=== PATIENT | female | born 1990 | race Caucasian/White ===

== ENCOUNTER 2017-01-05 13:52 | Emergency (ER) | payer OTHER ==
--- NOTE | 2017-01-05 17:32 | ED CLINICAL REPORT ---
Clinical Report - Physicians/Mid Levels [facility] [address] [place] [address] 01/05/2017 13:56 Patient: [facility]AL SMALLWOOD [id number] Time Seen: 14:30 Jan 05 2017. Arrived- By private vehicle. Historian- family (SO, son). HISTORY OF PRESENT ILLNESS Chief Complaint: VOMITING. This started today and is still present. No recent travel. She has had nausea and vomiting. No flank pain or history of possible bad food exposure. Has not recently been camping or on antibiotics. The illness is described as mild. (, prior vag delivery with no complications reports n/v over last few days worse with food, pt has no pain, reports she has an appetite. Denies abx use. Denies flank pain. Denies vag bleeding, loss of fluid. Denies any recent illness.). REVIEW OF SYSTEMS Last normal menstrual period- Nov 16. No fever or difficulty with urination. Currently . All systems otherwise negative, except as recorded above. PAST HISTORY Problems: UTI - Urinary Tract Infection. . Vomiting. Immunizations. LNMP - Last Normal Menstrual Period. Gastroenteritis [RuleOut]. Additional Surgeries: Tonsillectomy. Allergies: No Known Drug Allergy. SOCIAL HISTORY Never smoker. No alcohol use or drug use. ADDITIONAL NOTES The nursing notes have been reviewed. PHYSICAL EXAM Vital Signs: 01/05/2017 14:24 BP: 123/77. HR: 84. RR: 16. O2 saturation: 100%. Temp: 98.2 F. Pain level now: 0/10. Appearance: Alert. Eyes: Eyes normal inspection. ENT: Ears normal. Neck: Normal inspection. CVS: Normal heart rate and rhythm. Heart sounds normal. Respiratory: No respiratory distress. Breath sounds normal. No decreased air movement. Abdomen: Soft and nontender. Bowel sounds normal. No abdominal tenderness. Back: Normal inspection. No CVA tenderness. Skin: Skin warm. Normal skin color. Neuro: Oriented X 3. LABS, X-RAYS, AND EKG Laboratory Tests: CBC w Diff: (LUCIE: 01/05/2017 14:35) ( MsgRcvd 01/05/2017 14:50) Final results Test Result Flag Units (Reference) WHITE BLOOD COUNT 12.8 H K/uL (4.5-11.5) RED BLOOD COUNT 4.67 M/uL (4.00-5.20) HEMOGLOBIN 14.1 gm/dL (12.0-16.0) HEMATOCRIT 42.5 % (36.0-46.0) MEAN CELL VOLUME 91 fL (80-100) MEAN CORPUSCULAR HGB 30 pg (26-34) MEAN CORPUSCULAR HGB CONC 33 g/dL (31-37) RED CELL DISTRIBUTION WIDTH 13.1 % (11.6-14.8) PLATELET COUNT 265 K/uL (150-400) NEUTROPHIL % 76.9 H % (50-75) LYMPH % 17.5 L % (25-40) MONO % 5.1 % (3-14) EOSINOPHIL % 0.3 % (0-4) BASOPHIL % 0.2 % (0-2) . PROGRESS AND PROCEDURES Course of Care: Patient here and they are very stable. No distress. No emesis. She has an appetite. Able to tolerate by mouth well. Patient with history of emesis previously. To follow up outpatient. No vaginal bleeding. Abdomen is soft and nontender. 01/05/2017 15:55 BP: 109/67. HR: 91. RR: 16. O2 saturation: 100%. Temp: 99.3 F. Pain level now: 0/10. Patient is stable. Physical exam findings are improved. Symptoms better. Patient/family counseled. Disposition: Discharged. CLINICAL IMPRESSION Hyperemesis gravidarum less than 21 weeks. INSTRUCTIONS Drink plenty of fluids. Warnings: Further evaluation is necessary. Prescription Medications: Zofran (orally disintegrating tablets) 4 mg: take 1 orally every 8 hours for 3 days as needed for nausea. Dispense fifteen (15). No refill. Reglan 10 mg tablets: take 1 orally every 12 hours for 5 days as needed for nausea or vomiting. Dispense ten (10). No refills. Substitution is permissible. (Electronically signed by Kassie Ovalles P.A.-C 01/05/2017 17:32)
--- NOTE | 2017-01-05 17:32 | ED MED RECONCILIATION SUMMARY ---
Patient: JAMAAL SMALLWOOD Medication Reconciliation Report [facility] VisitID: [id number] [place] [address] 26y, F Registration Date/Time: 01/05/2017 Weight: 51.2 kg Height/Length: 108 in. BMI: 6.8 ALLERGIES: No Known Drug Allergy The patient's Home Medications are listed below: Not obtained. The source(s) of the original Home Medication information: Not obtained. The following Medications were given to the patient in the Emergency Department: IV NS IV Fluids bolus 0, then 1000 mL/hr, administered: 01/05/2017 2:42:00 PM Zofran [IVP] IVP 4 mg, administered: 01/05/2017 2:42:00 PM The following Medications were prescribed to the patient: Zofran (orally disintegrating tablets) 4 mg: take 1 orally every 8 hours for 3 days as needed for nausea. Dispense fifteen (15). No refill. -- Kassie Ovalles P.AJunior Reglan 10 mg tablets: take 1 orally every 12 hours for 5 days as needed for nausea or vomiting. Dispense ten (10). No refills. Substitution is permissible. -- Kassie Ovalles P.AJunior
--- NOTE | 2017-01-05 17:32 | ED ORDER SUMMARY ---
..... Patient: JAMAAL SMALLWOOD OrderSheet [facility] VisitID: [id number] [place] [address] 26y, F Registration Date/Time: 01/05/2017 ORDER SHEET Weight: 51.2 kg (measured) Allergies: No Known Drug Allergy GENERAL ORDERS: CBC w Diff Urgent (14:29 01/05/2017 Pooja P.A.-C) (Ack 14:36 TBergley) (15:31 TBergley) MEDICATION ORDERS: IV FLUIDS: IV NS : initial bolus 1000 mL (1000 mL/hr), then 1000 mL/hr for X1 (NOW); Karl (14:01/05/2017 Pooja Joshua.A.-C) (Ack 14:29 TChapman R.N.) (14:42 TChapman R.N.) Zofran IV 4 mg (NOW) (14:29 01/05/2017 Pooja Joshua.A.-C) (Ack 14:29 TChapman R.N.) (14:42 TChapman R.N.) ORDER SHEET NOTES: [Electronically signed by Carolina Mitchell R.N. (16:02 01/05/2017)] [Electronically signed by Kassie Ovalles P.A.-C (17:32 01/05/2017)] [Electronically locked/signed by Carolina Mitchell R.N. (16:02 01/05/2017)]
--- NOTE | 2017-01-05 17:32 | ED DISCHARGE INSTRUCTIONS ---
Patient: JAMAAL SMALLWOOD General Instructions [facility] VisitID: [id number] [place] [address] 26y, F Registration Date/Time: 01/05/2017 Hyperemesis gravidarum less than 21 weeks. INSTRUCTIONS Drink plenty of fluids. Warnings: Further evaluation is necessary. Prescription Medications: Zofran (orally disintegrating tablets) 4 mg: take 1 orally every 8 hours for 3 days as needed for nausea. Dispense fifteen (15). No refill. Reglan 10 mg tablets: take 1 orally every 12 hours for 5 days as needed for nausea or vomiting. Dispense ten (10). No refills. Substitution is permissible. ADDITIONAL INFORMATION Hyperemesis Of Hyperemesis of is a severe form of "morning sickness", where the vomiting is excessive and may cause dehydration and chemical imbalances in the body. It occurs in about 1% of pregnancies, and is usually worse during the 10-12th week of . It gets better by the 16th week. Its cause is not well understood, but may be related to rising hormone levels early in the . It can be a serious threat to mother and fetus if dehydration becomes severe. Therefore, follow the advice below carefully. If symptoms are severe and not controlled by home measures, intravenous fluids and admission to the hospital may be needed. Home Care: 1) Activity a. After awakening from sleep, remain in bed for 15 minutes before getting up. 2) Diet a. Eat frequent small meals rather than 3 large meals. b. A diet high in carbohydrates (starches) and fiber is best. Avoid greasy or spicy foods. c. If you are having trouble keeping down solid foods, drink frequent, small amounts of liquids with electrolytes, such as broth or sports drinks. If nausea and vomiting continue, rest your stomach by waiting 1-2 hours before trying to drink again. d. Keep a log of the foods you eat and how they affect your symptoms. Avoid foods that trigger your symptoms. e. Keep Saltine crackers at the bedside. If you are nauseated upon awakening, eat some crackers or dry toast before getting out of bed. 3) Medicine a. In general, it is best to avoid strong medicines during , especially during the first three months. The effect on the growing baby is not always known and these could cause harm. Your doctor will recommend a prescription medicine only when the symptoms you are having (vomiting and dehydration) are more dangerous to the baby than the small risk of using the medicine. b. Taking Vitamin B6 (pyridoxine), 10-25 mg daily is safe and may be helpful to reduce nausea. c. Check with your doctor before taking any other ariw-lge-igxhkrc or herbal medicines during your . Follow Up: With your doctor within the next few days or as instructed by this facility. Get Prompt Medical Attention if any of the following occur: -- Unable to keep any clear liquids down over a six-hour period -- Worsening weakness, dizziness or fainting occurs -- No weight gain over a two-week period -- Severe constant lower right abdominal pain -- Fever, chills or frequent diarrhea Redwood Diet A bland diet is used for patients with an upset stomach. It consists of foods that are mild and easy to digest. It is better to eat small frequent meals rather than three large meals a day. BEVERAGES OK: Fruit juices, non-caffeinated teas and coffee, non-carbonated valdez AVOID: Carbonated beverage, caffeinated tea and coffee, all alcoholic beverages BREAD OK: Refined white, wheat or rye bread, gem or soda crackers, [place] toast, plain rolls, bagels AVOID: Whole-grain bread CEREAL OK: Refined cereals: cooked or ready to eat AVOID: Whole grain cereals and granola, or those containing bran, seeds or nuts DESSERTS OK: Peanut butter and all others except those to "avoid" AVOID: Chocolate, cocoa, coconut, popcorn, nuts, seeds, jam, marmalade FRUITS OK: Canned, cooked, frozen or fresh fruits without seeds or tough skin AVOID: Olives, skin and seeds of fruit MEATS OK: All fresh or preserved meat, fish and fowl AVOID: Any that are prepared with those spices to "avoid" CHEESE & EGGS OK: Eggs, cottage cheese, cream cheese, other cheeses AVOID: All cheeses made with those spices to "avoid" POTATOES & PASTA OK: Potato, rice, macaroni, noodles, spaghetti AVOID: None SOUPS OK: All soups without heavy seasoning AVOID: Soups made with those spices to "avoid" VEGETABLES OK: Canned, cooked, fresh or frozen mildly flavored vegetables without seeds, skins or coarse fiber AVOID: Vegetables prepared with those spices to "avoid"; skin and seeds of vegetables and those with coarse fiber SPICES OK: Salt, lemon and [place] juice, vinegar, all extracts, daina, cinnamon, thyme, mace, allspice, paprika AVOID: Wilbraham powder, cloves, pepper, seed spices, garlic, gravy pickles, highly seasoned salad dressings Clear Liquid Diet Clear liquids are any liquid that you can see through as well as those that are very easy to digest. This is used while the body is recovering from irritation or infection of the stomach or intestinal tract. It may also be used before special procedures or surgery. This diet is to be used no more than three days. You may include the following items. Adults Adults should drink a total of 23 quarts of liquid per day. It may be easier to drink small frequent servings rather than a few large ones. Liquids can include: Fruit juices.Strained orange juice or lemonade (no pulp), apple, grape and cranberry juice, clear fruit drinks, sports drinks Beverages.Sport drinks, sodas, mineral water (plain or flavored), tea, black coffee, liquid gelatin (add twice the recommended amount of water) Soups.Clear broth, consomm, bouillon Desserts.Plain gelatin, popsicles, fruit juice bars Children Over 2 years old The following liquids are acceptable for children over age 2: Fruit juices.Strained orange juice or lemonade (no pulp), apple, grape and cranberry juice, clear fruit drinks Beverages. Sports drinks, sodas, mineral water (plain or flavored), tea, liquid gelatin (add twice the recommended amount of water) Soups. Clear broth, consomm, bouillon Desserts. Plain gelatin, popsicles, fruit juice bars Children under 2 years old Oral rehydration fluids such are available at drug stores and most grocery stores without a prescription. You have been given the following additional information: Hyperemesis Gravidarum Diet, Redwood (Adult) Diet, Clear Liquid (Electronically signed by Kassie Ovalles P.A.-C 01/05/2017 17:32)
--- NOTE | 2017-01-05 17:32 | ED MED RECONCILIATION SUMMARY ---
Patient: JAMAAL SMALLWOOD Medication Reconciliation Report [facility] VisitID: [id number] [place] [address] 26y, F Registration Date/Time: 01/05/2017 Weight: 51.2 kg Height/Length: 108 in. BMI: 6.8 ALLERGIES: No Known Drug Allergy The patient's Home Medications are listed below: Not obtained. The source(s) of the original Home Medication information: Not obtained. The following Medications were given to the patient in the Emergency Department: IV NS IV Fluids bolus 0, then 1000 mL/hr, administered: 01/05/2017 2:42:00 PM Zofran [IVP] IVP 4 mg, administered: 01/05/2017 2:42:00 PM The following Medications were prescribed to the patient: Zofran (orally disintegrating tablets) 4 mg: take 1 orally every 8 hours for 3 days as needed for nausea. Dispense fifteen (15). No refill. -- Kassie Ovalles P.AJunior Reglan 10 mg tablets: take 1 orally every 12 hours for 5 days as needed for nausea or vomiting. Dispense ten (10). No refills. Substitution is permissible. -- Kassie Ovalles P.AJunior
--- NOTE | 2017-01-05 17:32 | ED NURSING NOTES ---
Clinical Report - Nurses [facility] [address] [place] [address] 01/05/2017 13:56 [id number] TRIAGE Triage time 14:24. Acuity: LEVEL 4. Chief Complaint: NAUSEA and VOMITING. --14:27 Carolina Mitchell R.N. 14:24 01/05/17. BP: 123/77. HR: 84. RR: 16. O2 saturation: 100%. Temp: 98.2 F. Pain level now: 0/10. --14:27 Carolina Mitchell R.N. Weight: 51.2 kg measured. Height/Length: 108 inches Per Patient. BMI: 6.8. --14:23 Carolina Mitchell R.N. Allergies No Known Drug Allergy. --14:25 Carolina Mitchell R.N. History Arrived by private vehicle. Historian: patient. Accompanied by family. ( nausea and vomiting started last week. Patient is about 13 weeks . Patient prescribed Zofran which is not helping). She has had nausea and vomiting. 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 PAST MEDICAL HX: Currently . confirmed with home test. Has had care by group social worker. SOCIAL HX: No alcohol use or drug use. No recent travel. No known contact with a sick individual. FALL RISK ASSESSMENT: Fall risk assessment completed. No fall risk identified. NUTRITIONAL RISK ASSESSMENT: The nutritional risk assessment revealed no deficiencies. FUNCTIONAL ASSESSMENT: Functional assessment: no impairments noted. LEARNING NEEDS ASSESSMENT: The learning needs assessment revealed no barriers. SKIN INTEGRITY ASSESSMENT: Skin integrity risk assessment completed. No skin integrity risk identified. --14:27 Carolina Mitchell R.N. PROBLEMS: . Vomiting. --14:26 Carolina Mitchell R.N. ADDITIONAL SURGERIES: Tonsillectomy. --14:26 Carolina Mitchell R.N. Interventions ID band on patient. To treatment room. --14:27 Carolina Mitchell R.N. PHYSICAL ASSESSMENT 14:46 01/05/17. Ambulatory to room. Patient gowned. GENERAL / NEURO / PSYCH: Alert. Oriented X 4. Appears in no acute distress. HEENT: Mucous membranes are pink. RESPIRATORY: Respirations not labored. Breath sounds within normal limits. CVS: Capillary refill less than 2 seconds. GI / : The patient has had constant nausea. Emesis noted. Has vomited numerous times. Abdomen soft and nontender. Bowel sounds within normal limits. No diarrhea. No urethral discharge or vaginal discharge. SKIN: Skin is warm. --14:46 Carolina Mitchell R.N. NURSING PROGRESS NOTES 14:37 01/05/2017 Site #1 started via IV in the right antecubital space with an 22g angiocath, with good blood return; one attempt. Blood drawn: rainbow set. Saline lock flushed with 5 mL saline. --14:42 Carolina Mitchell R.N. 14:42 01/05/2017 Started bag #1 1000 mL IV Fluids IV NS (Saline); at 1000 mL/hr via site #1 via dial-a-flow. Allergies verified and confirmed 5 rights. IV patency established. IV site checked: no pain, redness, or swelling. IV flushed thoroughly pre- and post-medication administration. --14:42 Carolina Mitchell R.N. 14:42 01/05/2017 Zofran (Ondansetron HCl) IVP 4 mg given. via site #1. Allergies verified and confirmed 5 rights. IV patency established. IVP given by RN. --14:42 Carolina Mitchell R.N. 14:48 01/05/17. The initial plan of care for this patient includes an assessment with efforts to address impairment of the gastrointestinal system; hydration needs. This plan of care was discussed with the patient. Blood samples drawn. Patient gowned. Two patient identifiers checked. Call light placed in reach. Side rails up x 1. Bed placed in lowest position. Brakes of bed on. Patient ready for evaluation- UTILITY PORTER notified. --14:48 Carolina Mitchell R.N. 15:31 01/05/17. BP: 109/60. HR: 78. RR: 16. O2 saturation: 100%. Temp: 98.6 F. Pain level now: 0/10. --15:32 Carolina Mitchell R.N. ( patient given Jell-O, crackers and lemon kaw soda. Will re check her status in 15 min). --15:32 Carolina Mitchell R.N. 15:51 01/05/2017 IV Fluids IV NS Discontinued: bag #1 infused. Total amount infused: 1000 mL. IV patency established. IV site checked: no pain, redness, or swelling. IV flushed thoroughly. --16:01 Carolina Mitchell R.N. 15:56 01/05/2017 Site #1 removed upon discharge. Bandaid applied. --16:01 Carolina Mitchell R.N. DISPOSITION / DISCHARGE 15:59 01/05/17. Condition at departure: improved. The goals identified in the patient's plan of care were met. No learning barriers present. Discharge instructions provided and reviewed with the patient. Reviewed medication(s) (zofran and reglan). Reviewed clear liquid diet and need for increased fluid intake. Patient verbalized understanding. Written instructions provided in Mauritian. The patient was discharged by the nurse practitioner. She was discharged home and accompanied by spouse. She left the Emergency Department ambulatory and via private vehicle. Spouse driving. --15:59 Carolina Mitchell R.N. 15:55 01/05/17. BP: 109/67. HR: 91. RR: 16. O2 saturation: 100%. Temp: 99.3 F. Pain level now: 0/10. --15:59 Carolina Mitchell R.N. Departure time: 1600. --15:59 Carolina Mitchell R.N. Locked/Released at 01/05/2017 16:02 by Carolina Mitchell R.N.
--- NOTE | 2017-01-05 17:32 | ED NURSING NOTES ---
Clinical Report - Nurses [facility] [address] [place] [address] 01/05/2017 13:56 [id number] TRI[facility] Triage time 14:24. Acuity: LEVEL 4. Chief Complaint: NAUSEA and VOMITING. --14:27 Carolina Mitchell R.N. 14:24 01/05/17. BP: 123/77. HR: 84. RR: 16. O2 saturation: 100%. Temp: 98.2 F. Pain level now: 0/10. --14:27 Carolina Mitchell R.N. Weight: 51.2 kg measured. Height/Length: 108 inches Per Patient. BMI: 6.8. --14:23 Carolina Mitchell R.N. Allergies No Known Drug Allergy. --14:25 Carolina Mitchell R.N. History Arrived by private vehicle. Historian: patient. Accompanied by family. ( nausea and vomiting started last week. Patient is about 13 weeks . Patient prescribed Zofran which is not helping). She has had nausea and vomiting. 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 PAST MEDICAL HX: Currently . confirmed with home test. 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 SOCIAL HX: No alcohol use or drug use. No recent travel. No known contact with a sick individual. FALL RISK ASSESSMENT: Fall risk assessment completed. No fall risk identified. NUTRITIONAL RISK ASSESSMENT: The nutritional risk assessment revealed no deficiencies. FUNCTIONAL ASSESSMENT: Functional assessment: no impairments noted. LEARNING NEEDS ASSESSMENT: The learning needs assessment revealed no barriers. SKIN INTEGRITY ASSESSMENT: Skin integrity risk assessment completed. No skin integrity risk identified. --14:27 Carolina Mitchell R.N. PROBLEMS: . Vomiting. --14:26 Carolina Mitchell R.N. ADDITIONAL SURGERIES: Tonsillectomy. --14:26 Carolina Mitchell R.N. Interventions ID band on patient. To treatment room. --14:27 Carolina Mitchell R.N. PHYSICAL ASSESSMENT 14:46 01/05/17. Ambulatory to room. Patient gowned. GENERAL / NEURO / PSYCH: Alert. Oriented X 4. Appears in no acute distress. HEENT: Mucous membranes are pink. RESPIRATORY: Respirations not labored. Breath sounds within normal limits. CVS: Capillary refill less than 2 seconds. GI / : The patient has had constant nausea. Emesis noted. Has vomited numerous times. Abdomen soft and nontender. Bowel sounds within normal limits. No diarrhea. No urethral discharge or vaginal discharge. SKIN: Skin is warm. --14:46 Carolina Mitchell R.N. NURSING PROGRESS NOTES 14:37 01/05/2017 Site #1 started via IV in the right antecubital space with an 22g angiocath, with good blood return; one attempt. Blood drawn: rainbow set. Saline lock flushed with 5 mL saline. --14:42 Carolina Mitchell R.N. 14:42 01/05/2017 Started bag #1 1000 mL IV Fluids IV NS (Saline); at 1000 mL/hr via site #1 via dial-a-flow. Allergies verified and confirmed 5 rights. IV patency established. IV site checked: no pain, redness, or swelling. IV flushed thoroughly pre- and post-medication administration. --14:42 Carolina Mitchell R.N. 14:42 01/05/2017 Zofran (Ondansetron HCl) IVP 4 mg given. via site #1. Allergies verified and confirmed 5 rights. IV patency established. IVP given by RN. --14:42 Carolina Mitchell R.N. 14:48 01/05/17. The initial plan of care for this patient includes an assessment with efforts to address impairment of the gastrointestinal system; hydration needs. This plan of care was discussed with the patient. Blood samples drawn. Patient gowned. Two patient identifiers checked. Call light placed in reach. Side rails up x 1. Bed placed in lowest position. Brakes of bed on. Patient ready for evaluation- MICA PATCHER notified. --14:48 Carolina Mitchell R.N. 15:31 01/05/17. BP: 109/60. HR: 78. RR: 16. O2 saturation: 100%. Temp: 98.6 F. Pain level now: 0/10. --15:32 Carolina Mitchell R.N. ( patient given Jell-O, crackers and lemon [place] soda. Will re check her status in 15 min). --15:32 Carolina Mitchell R.N. 15:51 01/05/2017 IV Fluids IV NS Discontinued: bag #1 infused. Total amount infused: 1000 mL. IV patency established. IV site checked: no pain, redness, or swelling. IV flushed thoroughly. --16:01 Carolina Mitchell R.N. 15:56 01/05/2017 Site #1 removed upon discharge. Bandaid applied. --16:01 Carolina Mitchell R.N. DISPOSITION / DISCHARGE 15:59 01/05/17. Condition at departure: improved. The goals identified in the patient's plan of care were met. No learning barriers present. Discharge instructions provided and reviewed with the patient. Reviewed medication(s) (zofran and reglan). Reviewed clear liquid diet and need for increased fluid intake. Patient verbalized understanding. Written instructions provided in Malaysian. The patient was discharged by the nurse practitioner. She was discharged home and accompanied by spouse. She left the Emergency Department ambulatory and via private vehicle. Spouse driving. --15:59 Carolina Mitchell R.N. 15:55 01/05/17. BP: 109/67. HR: 91. RR: 16. O2 saturation: 100%. Temp: 99.3 F. Pain level now: 0/10. --15:59 Carolina Mitchell R.N. Departure time: 1600. --15:59 Carolina Mitchell R.N. Locked/Released at 01/05/2017 16:02 by Carolina Mitchell R.N.
--- NOTE | 2017-01-05 17:32 | ED MAR SUMMARY ---
..... Medication Administration Record [facility] [address] [place] [address] Patient: JAMAAL SMALLWOOD Visit ID: [id number] 26y, F Weight: 51.2 kg Height/Length: 108 in BMI: 6.8 ALLERGIES: No Known Drug Allergy Start 14:42 01/05/2017 Carolina Mitchell R.N., Stop 15:51 01/05/2017 Carolina Mitchell R.N. Medication Administered: IV NS (SALINE), Dose: IV Fluids, Rate: 1000 mL/hr, Dispensed: 1000 mL bag, Site: #1 right AC. Medication Ordered: IV NS : initial bolus 1000 mL (1000 mL/hr), then 1000 mL/hr for X1 (NOW); Karl. Given 14:42 01/05/2017 Carolina Mitchell R.N. Medication Administered: ZOFRAN [IVP] (ONDANSETRON HCL), Dose: 4 mg IVP, Site: #1 right AC. Medication Ordered: Zofran IV 4 mg (NOW).
--- NOTE | 2017-01-05 17:32 | ED MAR SUMMARY ---
..... Medication Administration Record Located Within [facility] [address] [place] [address] Patient: JAMAAL SMALLWOOD Visit ID: [id number] 26y, F Weight: 51.2 kg Height/Length: 108 in BMI: 6.8 ALLERGIES: No Known Drug Allergy Start 14:42 01/05/2017 Carolina Mitchell R.N., Stop 15:51 01/05/2017 Carolina Mitchell R.N. Medication Administered: IV NS (SALINE), Dose: IV Fluids, Rate: 1000 mL/hr, Dispensed: 1000 mL bag, Site: #1 right AC. Medication Ordered: IV NS : initial bolus 1000 mL (1000 mL/hr), then 1000 mL/hr for X1 (NOW); Karl. Given 14:42 01/05/2017 Carolina Mitchell R.N. Medication Administered: ZOFRAN [IVP] (ONDANSETRON HCL), Dose: 4 mg IVP, Site: #1 right AC. Medication Ordered: Zofran IV 4 mg (NOW).
--- NOTE | 2017-01-05 17:32 | ED ORDER SUMMARY ---
..... Patient: JAMAAL SMALLWOOD OrderSheet [facility] VisitID: [id number] [place] [address] 26y, F Registration Date/Time: 01/05/2017 ORDER SHEET Weight: 51.2 kg (measured) Allergies: No Known Drug Allergy GENERAL ORDERS: CBC w Diff Urgent (14:29 01/05/2017 Pooja P.A.-C) (Ack 14:36 TBergley) (15:31 TBergley) MEDICATION ORDERS: IV FLUIDS: IV NS : initial bolus 1000 mL (1000 mL/hr), then 1000 mL/hr for X1 (NOW); Akrl (14:01/05/2017 Pooja Joshua.A.-C) (Ack 14:29 TChapman R.N.) (14:42 TChapman R.N.) Zofran IV 4 mg (NOW) (14:29 01/05/2017 Pooja Joshua.A.-C) (Ack 14:29 TChapman R.N.) (14:42 TChapman R.N.) ORDER SHEET NOTES: [Electronically signed by Carolina Mitchell R.N. (16:02 01/05/2017)] [Electronically signed by Kassie Ovalles P.A.-C (17:32 01/05/2017)] [Electronically locked/signed by Carolina Mitchell R.N. (16:02 01/05/2017)]
== END 2017-01-05 16:00 | disposition home or self-care (01) ==
LOC: ED SRH 13:52
DX: O21.0 Mild hyperemesis gravidarum (principal); Z3A.01 Less than 8 weeks gestation of pregnancy
CPT/HCPCS: 95059

== ENCOUNTER 2017-01-14 17:17 | Emergency (ER) | payer OTHER ==
--- NOTE | 2017-01-14 18:31 | ED NURSING NOTES ---
Clinical Report - Nurses [facility] [address] [place] [address] 01/14/2017 17:17 [id number] Triage time 17:21. Acuity: LEVEL 3. Chief Complaint: ABDOMINAL PAIN, NAUSEA and VOMITING. --17:26 Donte Hein R.N. 17:21 01/14/17. BP: 118/66. HR: 77. RR: 18. O2 saturation: 100%. Temp: 98.3 F. Pain level now 03/08. --17:26 Donte Hein R.N. Weight: 51.2 kg stated. Height/Length: 62 inches Per Patient. BMI: 20.7. --17:26 Donte Hein R.N. Medications None. --17:23 Donte Hein R.N. Medication/allergy information source: the patient. --17:26 Donte Hein R.N. Allergies No Known Drug Allergy. --17:23 Donte Hein R.N. History Arrived by private vehicle. Historian: patient. Unaccompanied. Primary physician (Dr. Green). ( Came in due to constipation. She is 8 weeks preg. 1st appt with Dr. Green is next week. Pt is having lower abdominal discomfort and pressure. Last bm was 4 days ago. Pt has used stool softeners.). She has had nausea. She has had constipation (4 days ago). Treatment LIBRARY CUSTOMER SERVICE CLERK: None. PAST MEDICAL HX: Immunizations: up-to-date. Currently : 8 weeks. SURGERY HX: No history of previous surgery. SOCIAL HX: Never smoker. No alcohol use or drug use. SELF HARM ASSESSMENT: A self harm assessment was performed. The patient answered "no" to the question "Have you recently felt down, depressed, or hopeless?", "Have you noticed less interest or pleasure in doing things?", "Do you have thoughts of harming or killing yourself?", "Are you here because you tried to hurt yourself?", "Have you ever tried to hurt yourself before today?", "Have you recently had thoughts about harming or killing others?" and "Do you have any dangerous items in your possession?". --17:26 Donte Hein R.N. PROBLEMS: Hyperemesis Gravidarum. UTI - Urinary Tract Infection. . Vomiting. Immunizations. LNMP - Last Normal Menstrual Period. --17:24 Donte Hein R.N. Gastroenteritis [RuleOut]. --17:24 Donte Hein R.N. Interventions ID band on patient. To treatment room. --17: Donte Hein R.N. PHYSICAL ASSESSMENT GENERAL / NEURO / PSYCH: Alert. Oriented X 4. Appears in no acute distress. HEENT: Mucous membranes are pink. RESPIRATORY: Respirations not labored. Breath sounds within normal limits. CVS: Normal sinus rhythm noted. Capillary refill less than 2 seconds. GI / : The patient has had nausea. Abdomen soft and nontender. Bowel sounds within normal limits. Normal genitalia. Blood present in the stool, as blood streaks. ( Pt does have lower abdominal cramping. Pt last bm was 4 days ago.). SKIN: Skin is warm and dry. --17:28 Donte Hein R.N. NURSING PROGRESS NOTES Patient gowned. Two patient identifiers checked. Call light placed in reach. Side rails up x 1. Bed placed in lowest position. Brakes of bed on. --17:28 Donte Hein R.N. Patient ID band checked for patient name and birthdate: patient confirmed. Blood samples drawn from the right antecubital space with 23g butterfly by tech per protocol ; labeled in presence of the patient and sent to lab: rainbow set and red, green, purple and blue top. --17:43 Irma Renee ER Tech1 Patient ID band checked for patient name and birthdate: patient confirmed. Instructions provided to collect clean catch urine and patient verbalized understanding. Clean catch urine collected with return of yellow-colored urine; sample sent to lab for urinalysis and culture. Specimen labeled in the presence of the patient. --17:44 Irma Renee ER Tech1. DISPOSITION / DISCHARGE Departure time: 18:38. Condition at departure: unchanged. No learning barriers present. Discharge instructions provided and reviewed with the patient. Reviewed warnings (monitor blood in stool). Reviewed medication(s) side effects, precautions, dosing and course information. Prescription(s) given to the patient (mag citrate). Patient verbalized understanding. Written instructions provided in Setswana. The patient was discharged by the physician leasing assistant. She was discharged home and accompanied by parent. She left the Emergency Department ambulatory and via private vehicle. Parent driving. RAFAEL COMA SCORE: [place] Coma Scale: 15- eyes open spontaneously (4); best verbal response- oriented x 4 (5); best motor response- obeys commands (6). --18:38 Donte Hein R.N. 18:35 01/14/17. BP: 122/68. HR: 75. RR: 15. O2 saturation: 100%. Pain level now 0/10. --18:38 Donte Hein R.N. Locked/Released at 01/14/2017 18:38 by Donte Hein R.N.
--- NOTE | 2017-01-14 18:31 | ED CLINICAL REPORT ---
Clinical Report - Physicians/Mid Levels [facility] [address] [place] [address] 01/14/2017 17:17 [id number] Time Seen: 17:39 Apr 2016. Arrived- By private vehicle. Historian- patient, family and mother. HISTORY OF PRESENT ILLNESS Chief Complaint: ABDOMINAL PAIN. This started 4 days and is still present. It is described as cramping and it is described as located in the pelvic area. No vomiting or diarrhea. ( about 8 weeks iup with 4 days of constipation with bright red blood in stool today . Has not seen her ob. Reports no emesis/ diarrhea. Denies any use of Motrin. Has been taking vitamins. Reports some cramping. Denies sick contacts. Denies fevers.). REVIEW OF SYSTEMS No constipation, black stools, fever, sore throat or chest pain. No difficulty breathing or chills. She has had difficulty with urination (cramping/ urgency). All systems otherwise negative, except as recorded above. SOCIAL HISTORY Never smoker. No alcohol use or drug use. ADDITIONAL NOTES The nursing notes have been reviewed. PHYSICAL EXAM Vital Signs: 01/14/2017 17:21 BP: 118/66. HR: 77. RR: 18. O2 saturation: 100%. Temp: 98.3 F. Appearance: Alert. ENT: Nose normal. Neck: Normal inspection. Neck supple. No carotid bruit or thyromegaly. CVS: Normal heart rate and rhythm. Heart sounds normal. Respiratory: No respiratory distress. Breath sounds normal. Chest nontender. No decreased air movement. Abdomen: Soft. Gravid uterus palpable to just above pubic symphysis. No mass. No abdominal tenderness. Skin: Skin warm. Normal skin color. LABS, X-RAYS, AND EKG Laboratory Tests: UA-Culture if indicated: (LUCIE: 01/14/2017 17:48) ( MsgRcvd 01/14/2017 18:05) Final results Test Result Flag Units (Reference) URINE COLOR LIGHT YELLOW URINE APPEARANCE CLEAR URINE GLUCOSE NEGATIVE (NEGATIVE) URINE BILIRUBIN NEGATIVE (NEGATIVE) URINE KETONE NEGATIVE (NEGATIVE) URINE SPECIFIC GRAVITY <= 1.005 L (1.010-1.030) URINE PH 6.0 (5.0-8.0) URINE PROTEIN NEGATIVE (NEGATIVE) URINE UROBILINOGEN 0.2 EU/dL (0.2-1.0) URINE NITRITE NEGATIVE (NEGATIVE) URINE BLOOD NEGATIVE (NEGATIVE) URINE LEUK ESTERASE NEGATIVE (NEGATIVE) URINE RBC NONE SEEN rbc/hpf (0-1) URINE WBC RARE wbc/hpf (0-1) URINE EPITHELIAL CELLS 0-1 EPI/hpf (0-5) URINE BACTERIA NONE SEEN (NONE SEEN) URINE COMMENT CULT NOT INDICATED URINE CULTURES ARE SET-UP BASED ON THE FOLLOWING CRITERIA:POSITIVE NITRITEPOSITIVE LEUKOCYTE ESTERASEGREATER THAN 10 WHITE BLOOD CELLSMODERATE (2+) OR GREATER BACTERIA CBC w Diff: (LUCIE: 01/14/2017 17:35) ( [facility] [place]/14[place] 17:56) Final results Test Result Flag Units (Reference) WHITE BLOOD COUNT 13.4 H K/uL (4.5-11.5) RED BLOOD COUNT 4.34 M/uL (4.00-5.20) HEMOGLOBIN 13.3 gm/dL (12.0-16.0) HEMATOCRIT 39.7 % (36.0-46.0) MEAN CELL VOLUME 92 fL (80-100) MEAN CORPUSCULAR HGB 31 pg (26-34) MEAN CORPUSCULAR HGB CONC 34 g/dL (31-37) RED CELL DISTRIBUTION WIDTH 13.3 % (11.6-14.8) PLATELET COUNT 241 K/uL (150-400) NEUTROPHIL % 77.2 H % (50-75) LYMPH % 16.9 L % (25-40) MONO % 4.5 % (3-14) EOSINOPHIL % 0.2 % (0-4) BASOPHIL % 1.2 % (0-2) PT with INR: (LUCIE: 01/14/2017 18:00) ( [facility] 01/14/2017 18:20) Final results Test Result Flag Units (Reference) INR 0.9 (0.8-1.2) Low Intensity Therapy: INR 1.5-2.0 PT range 18.5-23.1Mod.Intensity Therapy: INR 2.0-3.0 PT range 23.1-31.5High Intensity Therapy: INR 2.5-3.5 PT range 27.4-35.5High Intensity Therapy 2: INR 3.0-4.0 PT range 31.5-39.3 APTT 30 SECONDS (24-34) CMP: (LUCIE: 01/14/2017 17:35) ( MsgRcvd 01/14/2017 18:13) Final results Test Result Flag Units (Reference) GLUCOSE 89 mg/dL (70-110) BUN 12 mg/dL (7-18) CREATININE 0.6 mg/dL (0.6-1.3) Estimated GFR >60 mL/min Estimated GFR- >60 mL/min Note: Persistent reduction over 3 months in eGFR<60 mL/min/1.73 m2 defines CKD. Patients with eGFR values>=60 mL/min/1.73 m2 may also have CKD if evidence ofpersistent proteinuria. Additional information may be foundat www.kidney.org. SODIUM 142 mmol/L (136-145) POTASSIUM 3.8 mmol/L (3.5-5.1) CHLORIDE 104 mmol/L (98-107) CARBON DIOXIDE 26 mmol/L (21-32) CALCIUM 9.9 mg/dL (8.5-10.1) TOTAL PROTEIN 7.6 g/dL (6.4-8.2) ALBUMIN 4.2 g/dL (3.3-5.0) BILIRUBIN, TOTAL 0.3 mg/dL (0.0-1.0) ALKALINE PHOSPHATASE 56 U/L (46-116) AST (SGOT) 11 L U/L (15-37) ALT (SGPT) 20 U/L (12-78) . PROGRESS AND PROCEDURES Course of Care: Patient with slightly positive Hemoccult, with brown stool. Stable lower GI bleed. Patient with no signs of obstruction. On rectal exam loose stool, very brown. Chaperoned rectal exam with LEGISLATIVE ASSISTANT. NO vag bleeding, loss of fluid, mild pain, not out of propoprtion thus ectopic less likely and not suspected. Patient is stable. Symptoms better. Patient/family counseled. Disposition: Discharged. CLINICAL IMPRESSION Minor GI bleed with hematochezia. No hematemesis or melena. Constipation INSTRUCTIONS Drink plenty of fluids. OTC Medications: Magnesium Citrate (10-oz bottle) (available over the counter): take 1/2 bottle to achieve bowel movement. Repeat after 4 hours if needed. (avoid taking for more than 3-4 days) Follow-up: Follow up with your doctor as needed. (Electronically signed by Kassie Ovalles P.A.-C 01/14/2017 18:39)
--- NOTE | 2017-01-14 18:31 | ED CLINICAL REPORT ---
Clinical Report - Physicians/Mid Levels [facility] [address] [place] [address] 01/14/2017 17:17 [id number] Time Seen: 17:39 Apr 2016. Arrived- By private vehicle. Historian- patient, family and mother. HISTORY OF PRESENT ILLNESS Chief Complaint: ABDOMINAL PAIN. This started 4 days and is still present. It is described as cramping and it is described as located in the pelvic area. No vomiting or diarrhea. ( about 8 weeks iup with 4 days of constipation with bright red blood in stool today . Has not seen her ob. Reports no emesis/ diarrhea. Denies any use of Motrin. Has been taking vitamins. Reports some cramping. Denies sick contacts. Denies fevers.). REVIEW OF SYSTEMS No constipation, black stools, fever, sore throat or chest pain. No difficulty breathing or chills. She has had difficulty with urination (cramping/ urgency). All systems otherwise negative, except as recorded above. SOCIAL HISTORY Never smoker. No alcohol use or drug use. ADDITIONAL NOTES The nursing notes have been reviewed. PHYSICAL EXAM Vital Signs: 01/14/2017 17:21 BP: 118/66. HR: 77. RR: 18. O2 saturation: 100%. Temp: 98.3 F. Appearance: Alert. ENT: Nose normal. Neck: Normal inspection. Neck supple. No carotid bruit or thyromegaly. CVS: Normal heart rate and rhythm. Heart sounds normal. Respiratory: No respiratory distress. Breath sounds normal. Chest nontender. No decreased air movement. Abdomen: Soft. Gravid uterus palpable to just above pubic symphysis. No mass. No abdominal tenderness. Skin: Skin warm. Normal skin color. LABS, X-RAYS, AND EKG Laboratory Tests: UA-Culture if indicated: (LUCIE: 01/14/2017 17:48) ( MsgRcvd 01/14/2017 18:05) Final results Test Result Flag Units (Reference) URINE COLOR LIGHT YELLOW URINE APPEARANCE CLEAR URINE GLUCOSE NEGATIVE (NEGATIVE) URINE BILIRUBIN NEGATIVE (NEGATIVE) URINE KETONE NEGATIVE (NEGATIVE) URINE SPECIFIC GRAVITY <= 1.005 L (1.010-1.030) URINE PH 6.0 (5.0-8.0) URINE PROTEIN NEGATIVE (NEGATIVE) URINE UROBILINOGEN 0.2 EU/dL (0.2-1.0) URINE NITRITE NEGATIVE (NEGATIVE) URINE BLOOD NEGATIVE (NEGATIVE) URINE LEUK ESTERASE NEGATIVE (NEGATIVE) URINE RBC NONE SEEN rbc/hpf (0-1) URINE WBC RARE wbc/hpf (0-1) URINE EPITHELIAL CELLS 0-1 EPI/hpf (0-5) URINE BACTERIA NONE SEEN (NONE SEEN) URINE COMMENT CULT NOT INDICATED URINE CULTURES ARE SET-UP BASED ON THE FOLLOWING CRITERIA:POSITIVE NITRITEPOSITIVE LEUKOCYTE ESTERASEGREATER THAN 10 WHITE BLOOD CELLSMODERATE (2+) OR GREATER BACTERIA CBC w Diff: (LUCIE: 01/14/2017 17:35) ( [facility] [place] 17:56) Final results Test Result Flag Units (Reference) WHITE BLOOD COUNT 13.4 H K/uL (4.5-11.5) RED BLOOD COUNT 4.34 M/uL (4.00-5.20) HEMOGLOBIN 13.3 gm/dL (12.0-16.0) HEMATOCRIT 39.7 % (36.0-46.0) MEAN CELL VOLUME 92 fL (80-100) MEAN CORPUSCULAR HGB 31 pg (26-34) MEAN CORPUSCULAR HGB CONC 34 g/dL (31-37) RED CELL DISTRIBUTION WIDTH 13.3 % (11.6-14.8) PLATELET COUNT 241 K/uL (150-400) NEUTROPHIL % 77.2 H % (50-75) LYMPH % 16.9 L % (25-40) MONO % 4.5 % (3-14) EOSINOPHIL % 0.2 % (0-4) BASOPHIL % 1.2 % (0-2) PT with INR: (LUCIE: 01/14/2017 18:00) ( [facility] [place]/14[place] 18:20) Final results Test Result Flag Units (Reference) INR 0.9 (0.8-1.2) Low Intensity Therapy: INR 1.5-2.0 PT range 18.5-23.1Mod.Intensity Therapy: INR 2.0-3.0 PT range 23.1-31.5High Intensity Therapy: INR 2.5-3.5 PT range 27.4-35.5High Intensity Therapy 2: INR 3.0-4.0 PT range 31.5-39.3 APTT 30 SECONDS (24-34) CMP: (LUCIE: 01/14/2017 17:35) ( MsgRcvd 01/14/2017 18:13) Final results Test Result Flag Units (Reference) GLUCOSE 89 mg/dL (70-110) BUN 12 mg/dL (7-18) CREATININE 0.6 mg/dL (0.6-1.3) Estimated GFR >60 mL/min Estimated GFR- >60 mL/min Note: Persistent reduction over 3 months in eGFR<60 mL/min/1.73 m2 defines CKD. Patients with eGFR values>=60 mL/min/1.73 m2 may also have CKD if evidence ofpersistent proteinuria. Additional information may be foundat www.kidney.org. SODIUM 142 mmol/L (136-145) POTASSIUM 3.8 mmol/L (3.5-5.1) CHLORIDE 104 mmol/L (98-107) CARBON DIOXIDE 26 mmol/L (21-32) CALCIUM 9.9 mg/dL (8.5-10.1) TOTAL PROTEIN 7.6 g/dL (6.4-8.2) ALBUMIN 4.2 g/dL (3.3-5.0) BILIRUBIN, TOTAL 0.3 mg/dL (0.0-1.0) ALKALINE PHOSPHATASE 56 U/L (46-116) AST (SGOT) 11 L U/L (15-37) ALT (SGPT) 20 U/L (12-78) . PROGRESS AND PROCEDURES Course of Care: Patient with slightly positive Hemoccult, with brown stool. Stable lower GI bleed. Patient with no signs of obstruction. On rectal exam loose stool, very brown. Chaperoned rectal exam with SHIPFITTER HELPER. NO vag bleeding, loss of fluid, mild pain, not out of propoprtion thus ectopic less likely and not suspected. Patient is stable. Symptoms better. Patient/family counseled. Disposition: Discharged. CLINICAL IMPRESSION Minor GI bleed with hematochezia. No hematemesis or melena. Constipation INSTRUCTIONS Drink plenty of fluids. OTC Medications: Magnesium Citrate (10-oz bottle) (available over the counter): take 1/2 bottle to achieve bowel movement. Repeat after 4 hours if needed. (avoid taking for more than 3-4 days) Follow-up: Follow up with your doctor as needed. (Electronically signed by Kassie Ovalles P.A.-C 01/14/2017 18:39)
--- NOTE | 2017-01-14 18:31 | ED ORDER SUMMARY ---
..... Patient: JAMAAL SMALLWOOD OrderSheet [facility] VisitID: [id number] [address] [place] [address] 26y, F Registration Date/Time: 01/14/2017 ORDER SHEET Weight: 51.2 kg (stated) Allergies: No Known Drug Allergy GENERAL ORDERS: CBC w Diff Urgent (17:35 01/14/2017 EKoroleva P.A.-C) (Ack 17:37 PWeiler ER Tech1) (17:42 TLewis R.N.) CMP Urgent (17:35 01/14/2017 EKoroleva P.A.-C) (Ack 17:37 PWeiler ER Tech1) (17:42 TLewis R.N.) PT with INR Urgent (17:35 01/14/2017 EKoroleva P.A.-C) (Ack 17:37 PWeiler ER Tech1) (17:42 TLewis R.N.) PTT Urgent (17:35 01/14/2017 EKoroleva P.A.-C) (Ack 17:37 PWeiler ER Tech1) (17:42 TLewis R.N.) UA-Culture if indicated Urgent (17:35 01/14/2017 EKoroleva P.A.-C) (Ack 17:37 PWeiler ER Tech1) (17:42 TLewis R.N.) MEDICATION ORDERS: IV FLUIDS: ORDER SHEET NOTES: [Electronically signed by Donte Hein R.N. (18:38 01/14/2017)] [Electronically signed by Kassie Ovalles.A.-C (18:39 01/14/2017)] [Electronically locked/signed by Donte Hein R.N. (18:38 01/14/2017)]
--- NOTE | 2017-01-14 18:31 | ED ORDER SUMMARY ---
..... Patient: JAMAAL SMALLWOOD OrderSheet [facility] VisitID: [id number] [address] [place] [address] 26y, F Registration Date/Time: 01/14/2017 ORDER SHEET Weight: 51.2 kg (stated) Allergies: No Known Drug Allergy GENERAL ORDERS: CBC w Diff Urgent (17:35 01/14/2017 EKoroleva P.A.-C) (Ack 17:37 PWeiler ER Tech1) (17:42 TLewis R.N.) CMP Urgent (17:35 01/14/2017 EKoroleva P.A.-C) (Ack 17:37 PWeiler ER Tech1) (17:42 TLewis R.N.) PT with INR Urgent (17:35 01/14/2017 EKoroleva P.A.-C) (Ack 17:37 PWeiler ER Tech1) (17:42 TLewis R.N.) PTT Urgent (17:35 01/14/2017 EKoroleva P.A.-C) (Ack 17:37 PWeiler ER Tech1) (17:42 TLewis R.N.) UA-Culture if indicated Urgent (17:35 01/14/2017 EKoroleva P.A.-C) (Ack 17:37 PWeiler ER Tech1) (17:42 TLewis R.N.) MEDICATION ORDERS: IV FLUIDS: ORDER SHEET NOTES: [Electronically signed by Donte Hein R.N. (18:38 01/14/2017)] [Electronically signed by Kassie Ovalles.A.-C (18:39 01/14/2017)] [Electronically locked/signed by Donte Hein R.N. (18:38 01/14/2017)]
--- NOTE | 2017-01-14 18:31 | ED NURSING NOTES ---
Clinical Report - Nurses [facility] [address] [place] [address] 01/14/2017 17:17 [id number] Triage time 17:21. Acuity: LEVEL 3. Chief Complaint: ABDOMINAL PAIN, NAUSEA and VOMITING. --17:26 Donte Hein R.N. 17:21 01/14/17. BP: 118/66. HR: 77. RR: 18. O2 saturation: 100%. Temp: 98.3 F. Pain level now 03/08. --17:26 Donte Hein R.N. Weight: 51.2 kg stated. Height/Length: 62 inches Per Patient. BMI: 20.7. --17:26 Donte Hein R.N. Medications None. --17:23 Donte Hein R.N. Medication/allergy information source: the patient. --17:26 Donte Hein R.N. Allergies No Known Drug Allergy. --17:23 Donte Hein R.N. History Arrived by private vehicle. Historian: patient. Unaccompanied. Primary physician (Dr. Green). ( Came in due to constipation. She is 8 weeks preg. 1st appt with Dr. Green is next week. Pt is having lower abdominal discomfort and pressure. Last bm was 4 days ago. Pt has used stool softeners.). She has had nausea. She has had constipation (4 days ago). Treatment DICE MANAGER: None. PAST MEDICAL HX: Immunizations: up-to-date. Currently : 8 weeks. SURGERY HX: No history of previous surgery. SOCIAL HX: Never smoker. No alcohol use or drug use. SELF HARM ASSESSMENT: A self harm assessment was performed. The patient answered "no" to the question "Have you recently felt down, depressed, or hopeless?", "Have you noticed less interest or pleasure in doing things?", "Do you have thoughts of harming or killing yourself?", "Are you here because you tried to hurt yourself?", "Have you ever tried to hurt yourself before today?", "Have you recently had thoughts about harming or killing others?" and "Do you have any dangerous items in your possession?". --17:26 Donte Hein R.N. PROBLEMS: Hyperemesis Gravidarum. UTI - Urinary Tract Infection. . Vomiting. Immunizations. LNMP - Last Normal Menstrual Period. --17:24 Donte Hein R.N. Gastroenteritis [RuleOut]. --17:24 Donte Hein R.N. Interventions ID band on patient. To treatment room. --17: Donte Hein R.N. PHYSICAL ASSESSMENT GENERAL / NEURO / PSYCH: Alert. Oriented X 4. Appears in no acute distress. HEENT: Mucous membranes are pink. RESPIRATORY: Respirations not labored. Breath sounds within normal limits. CVS: Normal sinus rhythm noted. Capillary refill less than 2 seconds. GI / : The patient has had nausea. Abdomen soft and nontender. Bowel sounds within normal limits. Normal genitalia. Blood present in the stool, as blood streaks. ( Pt does have lower abdominal cramping. Pt last bm was 4 days ago.). SKIN: Skin is warm and dry. --17:28 Donte Hein R.N. NURSING PROGRESS NOTES Patient gowned. Two patient identifiers checked. Call light placed in reach. Side rails up x 1. Bed placed in lowest position. Brakes of bed on. --17:28 Donte Hein R.N. Patient ID band checked for patient name and birthdate: patient confirmed. Blood samples drawn from the right antecubital space with 23g butterfly by tech per protocol ; labeled in presence of the patient and sent to lab: rainbow set and red, green, purple and blue top. --17:43 Irma Renee ER Tech1 Patient ID band checked for patient name and birthdate: patient confirmed. Instructions provided to collect clean catch urine and patient verbalized understanding. Clean catch urine collected with return of yellow-colored urine; sample sent to lab for urinalysis and culture. Specimen labeled in the presence of the patient. --17:44 Irma Renee ER Tech1. DISPOSITION / DISCHARGE Departure time: 18:38. Condition at departure: unchanged. No learning barriers present. Discharge instructions provided and reviewed with the patient. Reviewed warnings (monitor blood in stool). Reviewed medication(s) side effects, precautions, dosing and course information. Prescription(s) given to the patient (mag citrate). Patient verbalized understanding. Written instructions provided in Hebrew. The patient was discharged by the physician purchasing assistant. She was discharged home and accompanied by parent. She left the Emergency Department ambulatory and via private vehicle. Parent driving. RAFAEL COMA SCORE: [place] Coma Scale: 15- eyes open spontaneously (4); best verbal response- oriented x 4 (5); best motor response- obeys commands (6). --18:38 Donte Hein R.N. 18:35 01/14/17. BP: 122/68. HR: 75. RR: 15. O2 saturation: 100%. Pain level now 0/10. --18:38 Donte Hein R.N. Locked/Released at 01/14/2017 18:38 by Donte Hein R.N.
--- NOTE | 2017-01-14 18:40 | ED DISCHARGE INSTRUCTIONS ---
Patient: JAMAAL SMALLWOOD General Instructions [facility] VisitID: [id number] [address] [place] [address] 26y, F Registration Date/Time: 01/14/2017 Minor GI bleed with hematochezia. No hematemesis or melena. Constipation INSTRUCTIONS Drink plenty of fluids. OTC Medications: Magnesium Citrate (10-oz bottle) (available over the counter): take 1/2 bottle to achieve bowel movement. Repeat after 4 hours if needed. (avoid taking for more than 3-4 days) Follow-up: Follow up with your doctor as needed. ADDITIONAL INFORMATION Constipation (Adult) Constipation is bowel movements that are less frequent than usual. Stools often become very hard and difficult to pass. This may lead to abdominal pain and bloating. It may also cause painful bowel movements. Constipation may be due to a diet thats low in fiber. Some medications, especially pain medications, can also cause it. Constipation may be treated with enemas, suppositories, laxatives or stool softeners. Your doctor will advise you which will work best for you. Follow the advice below to help avoid this problem in the future. Home Care Medication: Take any medicines as directed. Some laxatives are safe only for occasional use. Others can be taken on a regular basis. Talk to your doctor or pharmacist if you have questions. General Care: Prescription pain medications can cause constipation. If you are prescribed pain medications, ask the doctor whether you should also take a stool softener. A diet high in fiber with plenty of fluids helps to maintain regular, soft bowel movements. The following foods are good sources of dietary fiber: Cereals and breads: Whole grain cereal with bran, oatmeal, rolled oats, whole grain breads Fruits: All fruits (fresh and dried), raisins, prunes, apricots, berries, figs Vegetables: Any fresh vegetables, especially peas, broccoli, brussels sprouts, winter squash, green beans, cauliflower, box beans, carrots Other: Popcorn, brown rice Drink plenty of water when you increase the amount of fiber you eat. Follow Up with your doctor or return to this facility if symptoms do not improve in the next few days. You may require further tests or a referral to a specialist. Get Prompt Medical Attention if any of the following occur: Fever over 100.4F (38C) Failure to resume normal bowel movements Increasing abdominal or back pain Nausea or vomiting Abdominal swelling Blood in the stool Weakness, dizziness or fainting Unexpected vaginal bleeding Rectal Bleeding (Stable) Your exam today shows signs of blood in the stool. This is called rectal bleeding, because the blood passes through the rectum. However, the blood may not be coming from the rectum. Blood in the stool may be red or black in color. Red blood in the stool usually comes from the lower gastro-intestinal (GI) tract. This may be due to diverticulosis, polyps, colon inflammation or infection, anal fissure or hemorrhoids. In persons over 50 tumors and cancer of the intestinal tract may first show up as red blood in the stool. Upper GI bleeding causes the stool to turn black. This may occur with bleeding from the esophagus, stomach, duodenum or small intestine. Very small amounts of GI bleeding may not be visible and can only be discovered on a chemical test of the stool. You have not lost a large amount of blood and your condition appears stable at this time. It is very important to have a follow-up exam to determine the exact cause of your bleeding. Home Care: 1) You may resume normal activity as long as you feel well. 2) Avoid aspirin and anti-inflammatory drugs such as ibuprofen (Advil, Motrin) and naproxen (Aleve and Naprosyn). You may use acetaminophen (Tylenol) for pain. [ NOTE : If you have chronic liver disease, talk with your doctor before using acetaminophen.] 3) Avoid alcohol. Follow Up with your doctor or as advised by our medical staff. It is very important that you have further tests done to find the cause of your bleeding. Get Prompt Medical Attention if any of the following occur: -- Large amount of rectal bleeding (more than 1 cup of blood in 24 hours) -- Increasing abdominal pain -- Weakness, dizziness or fainting -- Vomiting blood (red or black color) High Fiber Diet Fiber is present in all fruits, vegetables, cereals and grains. Fiber passes through the body undigested. A high fiber diet helps food move through the intestinal tract. The added bulk is helpful in preventing constipation. In people with diverticulosis it serves to clean out the pouches along the colon wall while preventing new ones from forming. A high fiber diet also reduces the risk of colon cancer, decreases blood cholesterol and prevents high blood sugar in people with diabetes. The foods listed below are high in fiber and should be included in your diet. If you are not used to high fiber foods, start with 1 or 2 foods from this list. Every 3-4 days add a new one to your diet until you are eating 4 high fiber foods per day. This should give you 20-35 Gm of fiber/day. It is also important to drink a lot of water when you are on this diet (6-8 glasses a day). Water causes the fiber to swell and increases the benefit. Foods High In Dietary Fiber: BREADS: Made with 100% whole wheat flour; gem, wheat or rye crackers; tortillas, bran muffins CEREALS: Whole grain cereal with bran (Chex, Raisin Bran, [place] Bran), oatmeal, rolled oats, granola, wheat flakes, brown rice NUTS: Any nuts FRUITS: All fresh fruits along with edible skins, (bananas, citrus fruit, mangoes, pears, prunes, raisins, apples, pineapple, apricot, melon, jams and marmalades), fruit juices (especially prune juice) VEGETABLES: All types, preferably raw or lightly cooked: especially, celery, eggplant, potatoes,spinach, broccoli, brussel sprouts, winter squash, carrots, cauliflower, soybeans, lentils, fresh and dried beans of all kinds OTHER: Popcorn, any spices You have been given the following additional information: Constipation (Adult) Rectal Bleed, Stable Diet, High Fiber (Electronically signed by Kassie Ovalles P.A.-C 01/14/2017 18:39)
--- NOTE | 2017-01-14 18:40 | ED MED RECONCILIATION SUMMARY ---
Patient: JAMAAL SMALLWOOD Medication Reconciliation Report [facility] VisitID: [id number] [address] [place] [address] 26y, F Registration Date/Time: 01/14/2017 Weight: 51.2 kg Height/Length: 62 in. BMI: 20.7 ALLERGIES: No Known Drug Allergy The patient's Home Medications are listed below: NONE. The source(s) of the original Home Medication information: patient The following Medications were given to the patient in the Emergency Department: None. The following Medications were prescribed to the patient: Magnesium Citrate (10-oz bottle) (available over the counter): take 1/2 bottle to achieve bowel movement. Repeat after 4 hours if needed.(avoid taking for more than 3-4 days) -- Kassie Ovalles P.A.-C
--- NOTE | 2017-01-14 18:40 | ED MED RECONCILIATION SUMMARY ---
Patient: JAMAAL SMALLWOOD Medication Reconciliation Report [facility] VisitID: [id number] [address] [place] [address] 26y, F Registration Date/Time: 01/14/2017 Weight: 51.2 kg Height/Length: 62 in. BMI: 20.7 ALLERGIES: No Known Drug Allergy The patient's Home Medications are listed below: NONE. The source(s) of the original Home Medication information: patient The following Medications were given to the patient in the Emergency Department: None. The following Medications were prescribed to the patient: Magnesium Citrate (10-oz bottle) (available over the counter): take 1/2 bottle to achieve bowel movement. Repeat after 4 hours if needed.(avoid taking for more than 3-4 days) -- Kassie Ovalles P.A.-C
--- NOTE | 2017-01-14 18:40 | ED MAR SUMMARY ---
..... Medication Administration Record [facility] [address], [place] [id number] Patient: JAMAAL SMALLWOOD Visit ID: [id number] 26y, F Weight: 51.2 kg Height/Length: 62 in BMI: 20.7 ALLERGIES: No Known Drug Allergy
--- NOTE | 2017-01-14 18:40 | ED MAR SUMMARY ---
..... Medication Administration Record [facility] [address], [place] [id number] Patient: JAMAAL SMALLWOOD Visit ID: [id number] 26y, F Weight: 51.2 kg Height/Length: 62 in BMI: 20.7 ALLERGIES: No Known Drug Allergy
== END 2017-01-14 18:40 | disposition home or self-care (01) ==
LOC: ED SRH 17:17
DX: O99.611 Diseases of the digestive system complicating pregnancy, first trimester (principal); K92.2 Gastrointestinal hemorrhage, unspecified; K59.00 Constipation, unspecified; K92.1 Melena; Z3A.08 8 weeks gestation of pregnancy
CPT/HCPCS: 90004; 90074; 90100; 94001; 94060; 95059

== ENCOUNTER 2017-03-27 15:43 | Outpatient (CLI) | payer OTHER ==
--- NOTE | 2017-03-27 17:46 | DIAGNOSTIC IMAGING REPORT ---
PROCEDURE: US OB DETAILED ANATOMIC INDICATION: ANATOMY TECHNIQUE: Chirinos scale, color, and spectral Doppler images of the second trimester gravid uterus were obtained. COMPARISON: None during this FINDINGS: A single living intrauterine is in vertex presentation. There is regular cardiac activity at a rate of 141 beats per minute. The placenta is fundal and posterior and away from the internal cervical os. The cervix is closed measuring approximately 5.9 cm in length. The amniotic fluid volume is subjectively normal. Biparietal diameter 3.9 cm, 17 weeks 6 days Head circumference 15.4 cm, 18 weeks 2 days Abdominal circumference 12.7 cm, 18 weeks 2 days Femur length 2.7 cm, 18 weeks 2 days Head to abdominal circumference ratio and femur length to abdominal circumference ratios are normal. Estimated weight 231 g plus/minus 35 g Composite gestational age 18 weeks 1 day There was visualization of a number of normal structures including the intracranial contents, facial features, nuchal region, spine, four-chamber heart and outflow tracts to the extent that could be visualized, diaphragm, fluid-filled stomach, kidneys, abdomen, urinary bladder, upper and lower extremities, and genitals. A three-vessel umbilical cord, normal and placental cord insertion sites were seen. IMPRESSION: 1. Single living intrauterine with a composite gestational age of 18 weeks 1 day and estimated due date of 08/27/2017. 2. Symmetric growth and normal anatomy.
== END 2017-03-27 23:00 | disposition home or self-care (01) ==
LOC: US SRH 15:43
DX: Z34.92 Encounter for supervision of normal pregnancy, unspecified, second trimester (principal); Z3A.18 18 weeks gestation of pregnancy